=== PATIENT | male | born 1965 | race African-American/Black ===

== ENCOUNTER 2017-05-17 16:32 | Emergency (ER) | payer SELFPAY ==
[~2017-05-17] VITALS: Ht 193 cm; Wt 109.0 kg
[2017-05-17 16:42] VITALS: BP 166/104
== END 2017-05-17 19:27 | disposition left against medical advice (07) ==
LOC: ER 16:32
DX: R42 Dizziness and giddiness (principal); H53.8 Other visual disturbances; I10 Essential (primary) hypertension; Z53.21 Procedure and treatment not carried out due to patient leaving prior to being seen by health care provider
CPT/HCPCS: J7050